=== PATIENT | female | born 1960 | race African-American/Black ===

== ENCOUNTER 2025-03-09 09:59 | Outpatient (REF) | payer OTHER, SELFPAY ==
--- OUTSIDE RECORDS SUMMARY | 2025-03-09 10:45 | XMS_ITS ---
Author Name [facility] Organization Unknown Care Team Organization Name Specialty Phone Email Start Date End Da te [facility] SYLWIA MARROQUIN Primary Care [email or web address] 12/20/2022 4 [facility] Blaine Joe Primary Care 09/18/202202/11 4 [facility] Yuki Bermudez Primary Care 05/21/2022 4
--- OUTSIDE RECORDS SUMMARY | 2025-03-09 10:45 | XMS_ITS | Encounter Summary ---
Author Organization [facility] Address [address] [place] [address] Care Team Providers Care Medical Lead Name Role Phone Haven Velasquez MD Primary Care Pr ovider Encounter Details Date Type Department Care Team (Late st Contact Info) Description 03/04/2025 Nurse Triage Adult Medicine [facility] [address] [place] [phone] Haven Velasquez MD [address] [place] [id number] Social History Tobacco Use Types Packs/Day Years Used Date Smoking Tobacco: Former Cigarettes 0.3 2 0 1974 - 1976 Smokeless Tobacco: Never Alcohol Use Standard Drinks/Week Comments No 0 (1 standard drink = 0.6 oz pur e alcohol) Housing Instability Answer Date Recorde d Are you worried that in the next 2 months you may not have stable housing? No 09/27/2024 Food Access & Nutrition Answer Date Rec orded Do you have access to a vari ety of food including fruits and vegetables? Yes 09/27/2024 Access to Healthcare Answer Date Record ed Within the last 3 months, ho w many times did you visit the emergency department for your medical care? 0 09/27/2024 Health Literacy Answer Date Recorded How often do you need to hav e someone help you when you read instructions, pamphlets, or other written material from your doctor or pharmacy? Never 09/27/2024 Caregiver: How often do you need to have someone help you when you read instructions, pamphlets, or other written material from your doctor or pharmacy? Not on file 09/27/2024 Financial Risk Answer Date Recorded How hard is it for you to pa y for the very basics like food, housing, medical care, and air conditioning / heating? Somewhat hard 09/27/2024 Transportation Answer Date Recorded Has the lack of transportati on kept you from meetings, work, or from getting things needed for daily living? No Has the lack of transportati on kept you from medical appointments or from getting medications? No 09/27/2024 Social Isolation Answer Date Recorded How often do you feel lonely or isolated from those around you? Sometimes 09/27/2024 Food Risk Answer Date Recorded Within the past 12 months we worried whether our food would run out before we got money to buy more. Never true 09/27/2024 Within the past 12 months th e food we bought just didn't last and we didn't have money to get more. Never true 09/27/2024 Dependent Care Answer Date Recorded Do you need help finding or paying for care for your loved ones. For example, child protective investigator or elderly care for an older adult? Yes 09/27/2024 Education Answer Date Recorded Do you think completing more education or training, like finishing a GED, going to college, or learning a trade, would be helpful for you? N/A 09/27/2024 Employment and Income Answer Date Recor ded During the last four weeks, have you been actively looking for work? Yes 09/27/2024 Living Situation Answer Date Recorded What is your living situation? 0 09/27/2024 Comments Unknown Sex and Gender Information Value Date Recorded Sex Assigned at Not on file Legal Sex Female 4:14 PM EST Gender Identity Not on file Sexual Orientation Not on file Travel History Travel Start Travel End [place] 02/03/2025 02/08/2025 documented as of this encounter Ordered Prescriptions Prescription Sig Dispense Quantity Refills Last Filled Start Date End Date metoprolol succinate (TOPROL-XL) 25 mg 24 hr tabletIndications: Essential hypertension, benign,Coronary artery disease involving [place] coronary artery of [place] heart without angina pectoris Take 0.5 tablets (12.5 mg total) by mouth 1 (one) time each day. 45 each 1 03/04/2025 documented in this encounter Progress Notes * Minerva Mccabe RN - 03/04/2025 3:26 PM EDT Pt is aware , will follow up as advised and will call if she has new or worsening problems * Haven Velasquez MD - 03/04/2025 3:18 PM EDT She should break the metoprolol in half and take 12.5 mg daily. She should monitor her blood pressures at home. She should stay well-hydrated drinking at least 2 L of water a day. The metoprolol is primarily indicated for her coronary artery disease so she still needs this medicine. If she still having symptoms at the lower dose, she should let us know.she should follow up in one month for BP check. thanks * Angeles Rodney RN - 03/04/2025 3:13 PM EDT Her BP currently is 98/67. She denies lightheadedness or weakness. She states she feels tired. * Angeles Rodney RN - 03/04/2025 3:07 PM EDT Reason for Disposition [1] Fall in systolic BP > 20 mm Hg from normal AND [2] NOT feeling weak or lightheaded Answer Assessment - Initial Assessment Questions 1. BLOOD PRESSURE: What is your blood pressure? Did you take at least two measurements 5 minutesapart? 100/68 after taking her antihypertensive medications 2. ONSET: When did you take your blood pressure? 10:30 am today 3. HOW: How did you take your blood pressure? (e.g., visiting nurse, automatic home BP monitor) Automatic cuff 4. HISTORY: Do you have a history of low blood pressure? What is your blood pressure normally? HTN. She states normally her BP is 116-120/80. 5. MEDICINES: Are you taking any medicines for blood pressure? If Yes, ask: Have they been changed recently? Losartan 50 mg at 10:00 am daily and Toprol XL 25 mg at 10:00 pm 6. PULSE RATE: Do you know what your pulse rate is? 60's - 70's 7. OTHER SYMPTOMS: Have you been sick recently? Have you had a recent injury? She reports tinnitus, weakness. No dizziness, chest pain or shortness of breath 8. : Is there any chance you are ? When was your last menstrual period? No. Pt is 64 Protocols used: Blood Pressure - Low-A-AH documented in this encounter Plan of Treatment Upcoming Encounters Date Type Department Care Team (Late st Contact Info) Description 03/30/2025 2:20 PM EDT Office Visit Gastroenterology - [address] [place] [address] Cris Moise PA [address] [place] [address] 04/28/2025 9:15 AM EDT Appointment Bone Density [address] [phone] 05/25/2025 9:45 AM EST Office Visit Adult Medicine [address] [phone] Haven Velasquez MD [address] [place] [address] 08/16/2025 10:30 AM EST Consult Bariatric Surgery - [place] [address] [facility] [address] [place] [address] Mayra Ellington PA [address] [place] [address] documented as of this encounter Goals Goal Patient Goal Type Associated Problems Recent Progress Patient-Stated? Author <enter goal here> General On track( 025 11:50 AM EDT) Yes Raya, Marilu A, OT Note: OT PATIENT GOAL HAVE NO PAIN WITH DAILY ACTIVITIES AND GET BETTER SLEEP documented as of this encounter Visit Diagnoses Diagnosis Essential hypertension, benign Coronary artery disease involving [place] coronary artery of [place] heart without angina pectoris documented in this encounter Discontinued Medications Medication Sig Discontinue Reason Start Date End Da te metoprolol succinate (TOPROL-XL) 25 mg 24 hr tabletIndications:Essent ial hypertension, benign,Coronary artery disease involving [place] coronary artery of [place] heart without angina pectoris Take 1 tablet (25 mg total) by mouth 1 (one) time each day. 01/19/2025 03/04/2025 documented as of this encounter Additional Health Concerns Assessment Noted Time PHQ-9 Depression Total Score: 1 09/28/19 25 1:43 PM EDT documented as of this encounter Care Teams Medical Lead Relationship Specialty Start Date End Date Haven Velasquez MD [address] [facility] [place] [address] PCP - General Internal Medicine 01/11/22 documented as of this encounter
--- OUTSIDE RECORDS SUMMARY | 2025-03-09 10:45 | XMS_ITS | Clinical Summary ---
Author Organization [address] Address [address] [facility] ZOË Sood Phone Care Team Providers Care Ingredient Scaler Helper Name Role Phone Haven Velasquez MD Primary Care Pr ovider Allergies Active Allergy Reactions Criticality Noted Date Comments Metformin Nausea And Vomiting 06/01/2021 Medications acetaminophen (TYLENOL) 500 mg tablet Take 1 tablet (500 mg total) by mouth as needed. Active diphenhydrAMIN E (BENADRYL) 25 mg capsule Take 1 capsule (25 mg total) by mouth every 6 (six) hours if needed. Active famotidine (PEPCID) 20 mg tablet Take 1 tablet (20 mg total) by mouth 2 (two) times a day. 60 tablet 11 06/21/20 24 Active losartan (COZAAR) 50 mg tabletIndicati ons:Essential hypertension, benign Take 1 tablet (50 mg total) by mouth 1 (one) time each day. 90 each 01/20/20 25 026 Active atorvastatin (LIPITOR) 20 mg tabletIndicati ons:Coronary artery disease involving [place] coronary artery of [place] heart without angina pectoris,Dysli pidemia Take 1 tablet (20 mg total) by mouth at bedtime. 90 each 01/20/20 25 026 Active aspirin 81 mg EC tabletIndicati ons:Coronary artery disease involving [place] coronary artery of [place] heart without angina pectoris Take 1 tablet (81 mg total) by mouth 1 (one) time each day. 90 each 01/20/20 25 01/05/2 026 Active cyclobenzaprin e (FLEXERIL) 5 mg tabletIndicati ons:Lumbar radiculopathy, Osteoarthritis of spine with radiculopathy, cervical region Take 1 tablet (5 mg total) by mouth at bedtime as needed for muscle spasms. 90 each 1 01/20/20 25 026 Active tirzepatide, weight loss, (Zepbound) 7.5 mg/0.5 mL injectionIndic ations:Type 2 diabetes mellitus with obesity ([facility] V24, [facility] V28) Inject 0.5 mL (7.5 mg total) under the skin every 7 (seven) days. 2 mL 2 02/15/20 25 Active clonazePAM (KlonoPIN) 0.5 mg tabletIndicati ons:Anxiety Take 0.5-1 tablets (0.25-0.5 mg total) by mouth 1 (one) time each day if needed for anxiety. Medication may cause drowsiness, do not drive/operate machinery while taking Max Daily Amount: 0.5 mg 14 tablet 02/29/20 25 Active metoprolol succinate (TOPROL-XL) 25 mg 24 hr tabletIndicati ons:Essential hypertension, benign,Coronar y artery disease involving [place] coronary artery of [place] heart without angina pectoris Take 0.5 tablets (12.5 mg total) by mouth 1 (one) time each day. 45 each 1 03/04/20 25 026 Active clonazePAM (KlonoPIN) 0.5 mg tabletIndicati ons:Anxiety Take 0.5-1 tablets (0.25-0.5 mg total) by mouth 1 (one) time each day if needed for anxiety. Medication may cause drowsiness, do not drive/operate machinery while taking Max Daily Amount: 0.5 mg 14 tablet 11/16/19 25 025 Discontinued(Re order) tirzepatide, weight loss, (Zepbound) 7.5 mg/0.5 mL injectionIndic ations:Type 2 diabetes mellitus with obesity ([facility] V24, [facility] V28) Inject 0.5 mL (7.5 mg total) under the skin every 7 (seven) days. 2 mL 2 01/13/20 25 025 Discontinued(Re order) metoprolol succinate (TOPROL-XL) 25 mg 24 hr tabletIndicati ons:Essential hypertension, benign,Coronar y artery disease involving [place] coronary artery of [place] heart without angina pectoris Take 1 tablet (25 mg total) by mouth 1 (one) time each day. 90 each 1 01/20/20 25 025 Discontinued Active Problems Problem Noted Date Diagnosed Date Depression 01/31/2025 Right lateral epicondylitis 11/04/2024 Fatty liver 05/24/2024 Class 1 obesity due to exces s calories with body mass index (BMI) of 32.0 to 32.9 in adult 05/24/2024 Assessment & Plan (01/19/2025 8:57 AM EDT): So far she has not really lost weight on the Zepbound 5 mg weekly. She will switch to the 7.5 mg when she runs out. Hopefully this causes some weight loss Lumbar radiculopathy 11/28/2023 Assessment & Plan (01/19/2025 8:57 AM EDT): Continue Flexeril as needed and Tylenol Orders: cyclobenzaprine (FLEXERIL) 5 mg tablet; Take 1 tablet (5 mg total) by mouth at bedtime as needed for muscle spasms. Osteoarthritis of spine with radiculopathy, cerv ical region 11/28/2023 Assessment & Plan (01/19/2025 8:57 AM EDT): Continue Flexeril as needed and Tylenol Orders: cyclobenzaprine (FLEXERIL) 5 mg tablet; Take 1 tablet (5 mg total) by mouth at bedtime as needed for muscle spasms. Coronary artery disease 03/14/2023 Overview (05/24/2024): Last Assessment & Plan: Patient is history of coronary artery disease status post mid LAD stent 03/2023. She has been on DAPT with Brilinta and aspirin since then. At this point she can stop the Brilinta and continue on aspirin. Patient encouraged to continue to remain active. She will continue on cardioprotective medical therapy with aspirin, beta-charlee and statin. I have reviewed with the patient the importance of a heart healthy lifestyle which includes eating a low-fat low-salt diet, getting regular exercise, maintaining a healthy weight, not smoking, and following up with routine medical care. Assessment & Plan (01/19/2025 8:57 AM EDT): Stable. Continue current medications. Orders: metoprolol succinate (TOPROL-XL) 25 mg 24 hr tablet; Take 1 tablet (25 mg total) by mouth 1 (one) time each day. Ambulatory referral to Cardiology; Future atorvastatin (LIPITOR) 20 mg tablet; Take 1 tablet (20 mg total) by mouth at bedtime. aspirin 81 mg EC tablet; Take 1 tablet (81 mg total) by mouth 1 (one) time each day. Assessment & Plan (06/28/2024 10:30 AM EST): Stable. Continue metoprolol 25 mg daily, aspirin 81 mg daily, atorvastatin 20 mg nightly De Quervain's tenosynovitis, left 03/30/2020 Type 2 diabetes mellitus wit h obesity ([facility] V24, [facility] V28) 05/18/2019 Assessment & Plan (01/19/2025 8:57 AM EDT): Well-controlled. Continue Zepbound Orders: Hemoglobin A1c; Future Assessment & Plan (06/28/2024 10:30 AM EST): A1c 7.1 Will start Mounjaro. This will also be helpful for weight loss Orders: tirzepatide, weight loss, 2.5 mg/0.5 mL solution; Inject 2.5 mg under the skin every 7 (seven) days. Hemoglobin A1c; Future Pain of right heel 03/25/2019 Anxiety 08/15/2017 Assessment & Plan (01/19/2025 8:57 AM EDT): She has Klonopin to use as needed Assessment & Plan (06/28/2024 10:30 AM EST): Has ongoing stressor with her sick mother Mass pat reviewed. Klonopin last sent in January 20 tablets and August 23 tablets She does not require a CSC due to infrequent prescriptions. 28 tablets sent today to last about 6 months Orders: clonazePAM (KlonoPIN) 0.5 mg tablet; Take 0.5-1 tablets (0.25-0.5 mg total) by mouth 1 (one) time each day if needed for anxiety. Medication may cause drowsiness, do not drive/operate machinery while taking Max Daily Amount: 0.5 mg Essential hypertension, benign 03/26/2017 Overview (01/31/2025): Assessment & Plan (01/19/2025 8:57 AM EDT): Well-controlled. Continue current medications Orders: losartan (COZAAR) 50 mg tablet; Take 1 tablet (50 mg total) by mouth 1 (one) time each day. metoprolol succinate (TOPROL-XL) 25 mg 24 hr tablet; Take 1 tablet (25 mg total) by mouth 1 (one) time each day. Assessment & Plan (06/28/2024 10:30 AM EST): Stable. Continue losartan 50 mg daily FAUSTINO (obstructive sleep apnea) 03/20/2017 Overview (05/24/2024): [facility] Home Sleep Apnea Test: Date 06/02/2019; Wt 254#; BMI 40; KATHRIN 20, AI 3; HI 18; Unclassified apneas 5; Obstructive apneas 15; Central apneas 2; Mixed apneas 0; hypopneas 141; average oxygen saturation 95% (lowest 86% without saturations <88% for 5% or more of study. [facility] Home sleep test -07/2021; weight 245; BMI 37. AHI 15. 23 obstructive apneas, 3 central apneas, 1 mixed apnea and 65 hypopneas. Average oxygen saturation 94% with oxygen katalina 70%. - Obstructive Sleep Apnea - moderate; mostly hypopneas; without sleep related hypoventilation by 2018 home sleep apnea test. Obstructive sleep apnea-moderate with mostly hypopneas and obstructive apneas without nocturnal hypoxemia based on 2021 home sleep test. Assessment & Plan (01/19/2025 8:57 AM EDT): Continue CPAP nightly Assessment & Plan (06/28/2024 10:30 AM EST): sleep study ordered in February. States she was contacted for an appointment but cannot remember the date. I have no records of an appointment for her Another referral is placed today Orders: Ambulatory referral to Sleep Medicine; Future Type 2 diabetes mellitus wit hout complication, without long-term current use of insulin ([facility] V24, [facility] V28) Resolved Problems Problem Noted Date Diagnosed Date Resolved Date Chest wall pain 05/24/2024 01/31/2025 Gassiness 05/24/2024 02/01/2025 Intermittent chest pain 03/14/2023 0707/2024 Abnormal cardiovascular stress test 03/12/2023 01/31/2025 Overview (05/24/2024): Referred to cardiology Dyslipidemia 03/26/2022 02/01/2025 Overview (01/31/2025): Assessment & Plan (01/19/2025 8:57 AM EDT): Continue atorvastatin Orders: atorvastatin (LIPITOR) 20 mg tablet; Take 1 tablet (20 mg total) by mouth at bedtime. Lipid panel with reflex to direct LDL; Future Encounters Date Type Department Care Team Description 03/04/2025 Nurse Triage Adult Medicine [address] [phone] Haven Velasquez MD 02/28/2025 11:16 AM EDT - 02/28/2025 11:59 PM EDT Hospital Encounter Radiology Department - [address] [phone] Encounter for screening mammogram for breast cancer Discharge Disposition: Home or Self Care 02/23/2025 2:30 PM EDT Office Visit Adult Medicine [address] [phone] Haevn Velasquez MD Left-sided tinnitus (Primary Dx); Cerumen debris on tympanic membrane, right 02/21/2025 Nurse Triage [address] [phone] Jana Burks MD 02/14/2025 3:00 PM EDT Office Visit [address] [phone] Danielle Heck, RICKEY Excessive cerumen in ear canal, bilateral (Primary Dx); Irritation of ear, unspecified laterality 02/01/2025 11:15 AM EDT Office Visit [address] [phone] Jana uBrks MD Tinnitus of both ears (Primary Dx); Type 2 diabetes mellitus without complication, without long-term current use of insulin (CMS/HCC V24, CMS/HCC V28); Excessive cerumen in ear canal, bilateral; Essential hypertension, benign 01/31/2025 Nurse Triage [address] [phone] Haven Velasquez MD 01/19/2025 8:45 AM EDT Office Visit [address] [phone] Haven Velasquez MD Type 2 diabetes mellitus with obesity (CMS/HCC V24, CMS/HCC V28) (Primary Dx); Class 1 obesity due to excess calories with serious comorbidity and body mass index (BMI) of 32.0 to 32.9 in adult; Essential hypertension, benign; Coronary artery disease involving [place] coronary artery of [place] heart without angina pectoris; FAUSTINO (obstructive sleep apnea); Lumbar radiculopathy; Osteoarthritis of spine with radiculopathy, cervical region; Anxiety; Dyslipidemia; Need for vaccination against Streptococcus pneumoniae; Skin lesion 01/07/2025 11:30 AM EDT Treatment [facility] Occupational Therapy [address] [place] [phone] Marilu Raya, OT Right lateral epicondylitis (Primary Dx) 01/04/2025 8:35 AM EDT Lab Draw Station - [place] [address] [place] [address] Elevated alkaline phosphatase level; NAFLD (nonalcoholic fatty liver disease); Type 2 diabetes mellitus with obesity ([facility] V24, [facility] V28) 12/30/2024 10:10 AM EDT Office Visit Gastroenterology - [place] [address] [place] [address] Cris Moise PA Elevated alkaline phosphatase level (Primary Dx); NAFLD (nonalcoholic fatty liver disease); Obesity (BMI 35.0-39.9 without comorbidity); Tubular adenoma 12/12/2024 Telephone Adult Medicine [address] [place] [phone] Haven Velasquez MD from Last 3 Months Immunizations Name Administration Dates Next Due Influenza Quadravalent, MDCK , 0.5ml, preservative free (Flucelvax) 6mo and older 04/28/2023,06/01/2021,05/18/2020,05/18 Pneumococcal conjugate 20 va lent (Prevnar 20, PCV 20) 2mo and older 01/19/2025 Pneumococcal polysaccharide 23 valent (Pneumovax 23) 2yo and older 12/22/2018 Tdap Tetanus diptheria acell ular pertussis (Boostrix; Adacel) 7yo and older 12/22/2018 Surgical History Surgery Date Site/Laterality Comments SECTION OOPHORECTOMY : unilateral but not sure which. (ectopic) TUBAL LIGATION VENTRAL HERNIA REPAIR incisional hernia COLONOSCOPY 2006 2 polyps COLONOSCOPY 04/10/2017 : Diverticulosis and 3 polyps: tubular adenoma x 2; hyperplastic x 1. HYSTEROSCOPY 07/29/2017 Endometrial cancer / polyps ROBOTIC ASSISTED HYSTERECTOMY 09/11/2017 BREAST BIOPSY : lt breast bx-benign in her 30s COLONOSCOPY 04/17/2022 diverticulosis and tiny tubular adenoma Medical History Medical History Date Comments Type 2 diabetes mellitus wit hout complication, without long-term current use of insulin (CMS/[facility] V24, CMS/HCC V28) 11/19/2016 Endometrial cancer ([facility] V24, CMS/[facility] V28) 07/31/2017 FAUSTINO (obstructive sleep apnea) 03/20/2017 Essential hypertension, benign D X:Essential hypertension, benign Fatty liver Hyperlipidemia Anxiety state Depressive disorder Coronary artery disease 03/14/2023 Osteoarthritis of spine with radiculopathy, cervical region 11/28/2023 Family History Medical History Relation Name Comments Breast cancer Aunt m 30s Other cancer Maternal Grandmother either kidney or pancreas? Diabetes Mother HTN, thyroid di sease, ESRD Colon cancer Neg Hx Ovarian cancer Neg Hx Relation Name Status Comments Aunt m 30s Father Maternal Grandmother Mother Alive Social History Tobacco Use Types Packs/Day Years Used Date Smoking Tobacco: Former Cigarettes 0.3 2 0 1974 - 1976 Smokeless Tobacco: Never Tobacco Cessation:Counseling Given: Not Answered Alcohol Use Standard Drinks/Week Comments No 0 [...] for your loved ones. For example, child and youth program assistant or elderly care for an older adult? [...] file Travel History Travel Start Travel End [place] 02/03/2025 02/08/2025 Obstetrics History Para Term AB IAB SAB Ectopic Multiple Livin g Live Births 3 3 3 Date Outcome GA Total Labor Labor/2nd/3rd Weight Sex Type Anes PTL Allison A1 A5 Name Clin Term Term Term Last Filed Vital Signs Vital Sign Reading Time Taken Comments Blood Pressure 97/65 02/23/2025 2:27 PM EDT Pulse 63 02/23/2025 2:27 PM EDT Temperature 36.2 C (97.1 F) 02/23/2025 2:27 PM EDT Respiratory Rate 14 02/23/2025 2:27 PM EDT Oxygen Saturation 98% 02/23/2025 2:27 PM EDT Inhaled Oxygen Concentration - - Weight 104 kg (230 lb) 02/23/2025 2:27 PM EDT Height 170.2 cm (5' 7 ) 02/23/2025 2:27 PM EDT Body Mass Index 36.02 02/23/2025 2:27 PM EDT Plan of Treatment Upcoming Encounters Date Type Department Care Team (Late st Contact Info) Description 03/30/2025 2:20 PM EDT Office Visit Gastroenterology - [place] [address] [place] [phone] Cris Moise PA [address] [place] [address] 04/28/2025 9:15 AM EDT Appointment Bone Density - [address] [phone] 05/25/2025 9:45 AM EST Office Visit Adult Medicine [facility] - [address] [phone] Haven Velasquez MD [address] [place] [address] 08/16/2025 10:30 AM EST Consult Bariatric Surgery - [address] [place] [phone] Mayra Ellington PA [address] [place] [address] Health Maintenance Due Date Last Done Comments Zoster Vaccines (1 of 2) 1980 HIV Screening 06/22/2022 Diabetes: Annual Foot Exam 03/08/2025 03/08/2024 Influenza Vaccine (#1) 2025 , 06/01/2021, 05/18/2020, Additional history exists Diabetes: Annual Urine Albumin-Creatinine Ratio (uACR) 06/23/2025 06/23/2024, 07/30/2023 Diabetes: Blood Sugar Control Test (HGBA1C) 07/06/2025 01/04/2025, 09/15/2024, 06/23/2024, Additional history exists Social Influencers of Health Screening 09/27/2025 09/27/2024 Diabetes: Annual GFR (Glomerular Filtration Rate) 10/25/2025 10/25/2024, 09/15/2024, 06/23/2024, Additional history exists Hypertension/CHF/CAD Annual BMP Blood Test 10/25/2025 10/25/2024, 09/15/2024, 06/23/2024, Additional history exists Diabetes: Annual Retina Eye Exam 12/20/2025 12/20/2024, 08/02/2023 Breast Cancer Screening 02/28/2027 02/29/20 25, 02/16/2024, 02/16/2024, Additional history exists Colorectal Cancer Screening: Colonoscopy 04/17/2027 04/17/2022 DTaP,Tdap,and Td Vaccines (2 - Td or Tdap) 12/22/2028 12/22/2018 Cholesterol Screening (Lipid Panel) 06/23/2029 06/23/2024, 11/24/2023, 11/24/2023 RSV Immunization Adult Patients (1 - 1-dose 75+ series) 2036 COVID-19 Vaccine Discontinued 08/01/2021, , 10/03/2020 Hepatitis C Screening Completed 08/06/2021 Depression Screening Completed 09/27/2024, 11/28/19 Pneumococcal Vaccine: 50+ Years Completed 01/19/2025, 12/22/2018 HIB Vaccines Aged Out No longer eligi ble based on patient's age to complete this topic HPV Vaccines Aged Out No longer eligi ble based on patient's age to complete this topic Hepatitis A Vaccines Discontinued Hepatitis B Vaccines Aged Out No long er eligible based on patient's age to complete this topic IPV Vaccines Aged Out No longer eligi ble based on patient's age to complete this topic MMR Vaccines Aged Out No longer eligi ble based on patient's age to complete this topic Meningococcal ACWY Vaccine Aged Out N o longer eligible based on patient's age to complete this topic Meningococcal B Vaccine Aged Out No l onger eligible based on patient's age to complete this topic RSV Immunization Patients Under 20 months Aged Out No longer eligible based on patient's age to complete this topic Varicella Vaccines Aged Out No longer eligible based on patient's age to complete this topic Goals Goal Patient Goal Type Associated Problems Recent Progress Patient-Stated? Author <enter goal here> General On track( 025 11:50 AM EDT) Yes Marilu Raya, OT Note: OT PATIENT GOAL HAVE NO PAIN WITH DAILY ACTIVITIES AND GET BETTER SLEEP Procedures Procedure Name Priority Date/Time Associated Diagnosis Comments MG MAMMO DIGITAL SCREENING W THOM BILAT Routine 02/28/2025 11:40 AM EDT Encounter for screening mammogram for breast cancer HEMOGLOBIN A1C Routine 01/04/2025 9:00 AM EDT Type 2 diabetes mellitus with obesity (CMS/HCC V24, CMS/HCC V28) SMOOTH MUSCLE ANTIBODY IGG Routine 01/04/2025 9:00 AM EDT Elevated alkaline phosphatase level NAFLD (nonalcoholic fatty liver disease) ANTIMITOCHONDRIAL ANTIBODY Routine 01/04/2025 9:00 AM EDT Elevated alkaline phosphatase level NAFLD (nonalcoholic fatty liver disease) CHIKI IFA WITH TITER AND PATTERN Routine 01/04/2025 9:00 AM EDT Elevated alkaline phosphatase level NAFLD (nonalcoholic fatty liver disease) COMPREHENSIVE METABOLIC PANEL Routine 10/25/2024 12:25 PM EDT Elevated alkaline phosphatase level Dyspepsia Diabetes 1.5, managed as type 2 (CMS/HCC V24, CMS/HCC V28) MICROALBUMIN CREATININE URINE RATIO Routine 06/23/2024 9:53 AM EST Essential hypertension, benign Fatty liver Type 2 diabetes mellitus with obesity (CMS/HCC V24, CMS/HCC V28) Dyslipidemia LIPID PANEL WITH REFLEX TO DIRECT LDL Routine 06/23/2024 9:52 AM EST Essential hypertension, benign Fatty liver Type 2 diabetes mellitus with obesity (CMS/HCC V24, CMS/HCC V28) Dyslipidemia DIABETES FOOT EXAM Routine 03/08/2024 DEPRESSION SCREENING Routine 11/28/2023 DIABETES EYE EXAM Routine 08/02/2023 COLONOSCOPY Routine 04/17/2022 HEPATITIS C SCREENING Routine 08/06/2021 from Last 3 Months or Most Recently Relevant to Health Maintenance Results * MG Mammo Digital Screening w Thom bilat (02/28/2025 11:40 AM EDT) Anatomical Region Laterality Modality Breast Bilateral Mammography 03/01/2025 12:5 0 PM EDT Impressions 03/01/2025 12:56 PM EDT No mammographic evidence for malignancy. BI-RADS CATEGORY: 2 - BENIGN RECOMMENDATION: Screening bilateral mammogram is recommended in 1 year. Mammo Location: [facility], [address] [place] [address], [id number], . -------- FINAL REPORT -------- Dictated By: Veronica Santacruz Dictated Date: 03/01/2025 12:50 ET Assigned Physician: Veronica Santacruz Reviewed and Electronically Signed By: Veronica Santacruz Signed Date: 03/01/2025 12:56 ET Workstation ID: [id number] Transcribed By: Self Edit Transcribed Date: 03/01/2025 12:50 ET Narrative 03/01/2025 12:56 PM EDT Bilateral screening mammogram. CLINICAL: 64 years old, Female, routine annual exam. COMPARISON: Prior mammograms, latest from 02/16/2024. TECHNIQUE: Bilateral MLO and CC views were obtained digitally with 2 D C views and 3-D mammogram (digital breast tomosynthesis). Computer-aided detection was utilized in evaluation of this exam (CAD). FINDINGS: There is no evidence of suspicious mass or architectural distortion. No worrisome calcifications are evident. There has been no significant change from prior exam(s). BREAST DENSITY: C - The breasts are heterogeneously dense which may obscure small masses. Procedure Note Veronica Santacruz MD - 03/01/2025 Bilateral screening mammogram. CLINICAL: 64 years old, Female, routine annual exam. COMPARISON: Prior mammograms, latest from 02/16/2024. TECHNIQUE: Bilateral MLO and CC views were obtained digitally with 2 D Cviews and 3-D mammogram (digital breast tomosynthesis). Computer-aideddetection was utilized in evaluation of this exam (CAD). FINDINGS: There is no evidence of suspicious mass or architectural distortion. Noworrisome calcifications are evident. There has been no significantchange from prior exam(s). BREAST DENSITY: C - The breasts are heterogeneously dense which mayobscure small masses. IMPRESSION: No mammographic evidence for malignancy. BI-RADS CATEGORY: 2 - BENIGN RECOMMENDATION: Screening bilateral mammogram is recommended in 1 year. Mammo Location: [facility], [address] [place] [address], [id number], . -------- FINAL REPORT -------- Dictated By: Veronica Santacruz Dictated Date: 03/01/2025 12:50 ET Assigned Physician: Veronica Santacruz Reviewed and Electronically Signed By: Veronica Santacruz Signed Date: 03/01/2025 12:56 ET Workstation ID: [id number] Transcribed By: Self Edit Transcribed Date: 03/01/2025 12:50 ET us Haven Velasquez MD IMG BI PROCEDURE S Final Result * (ABNORMAL) CHIKI IFA with titer and pattern (01/04/2025 9:00 AM EDT) CHIKI Positive( A) Negative 01/05/2025 2:19 PM EDT [facility] CHIKI Pattern Homogeneo us(A) (none) 01/05/2025 2:19 PM EDT [facility] Comment:May be Associated wi th SLE and drug-induced SLE. Titer 1:320(A) <1:160 01/05/2025 2:19 PM EDT [facility] Comment: Approximately 3% of healthy persons have CHIKI titer of 1:320 or higher Further testing for other autoantibodies should be prompted by specific clinical findings/impressions. Blood Venous blood specimen / Unknown Venipuncture / Unknown 01/04/2025 9:00 AM EDT 01/04/2025 9:00 AM EDT us Cris BLAND LAB BLOOD ORDERABLES Final Re sult [facility] [address] [place] [address], [place] [phone] * Smooth muscle antibody IgG (01/04/2025 9:00 AM EDT) [facility] Smooth Muscle (F-Actin) IgG Ab 13 <20 UNITS 01/07/2025 12:02 PM EDT [facility] Comment: Interpretation: Negative Test performed at [facility], [address], [place] [address] Zayda Fisher MD, PhD - Bedspread Folder Blood Venous blood specimen / Unknown Venipuncture / Unknown 01/04/2025 9:00 AM EDT 01/04/2025 9:00 AM EDT us Cris BLAND LAB BLOOD ORDERABLES Final Re sult Performing Organization Address [facility]/ZIP Co de Phone Number [facility] [address] [place] [address] * Antimitochondrial antibody (01/04/2025 9:00 AM EDT) [facility] Mitochondrial Antibody Quantitative 3.2 <=20.0 units LAB CHEMISTRY METHOD 01/05/2025 11:54 AM EDT [facility] Mitochondrial Antibody Qualitative Negative Negative LAB CHEMISTRY METHOD 01/05/2025 11:54 AM EDT [facility] Blood Venous blood specimen / Unknown Venipuncture / Unknown 01/04/2025 9:00 AM EDT 01/04/2025 9:00 AM EDT us Cris BLAND LAB BLOOD ORDERABLES Final Re sult Performing Organization Address [facility]ZIP Co de Phone Number [facility] [address] [place] [address], [place] [phone] * Hemoglobin A1c (01/04/2025 9:00 AM EDT) [facility] Hemoglobin A1C 5.9 <6.5 % LAB CHEMISTRY METHOD 01/04/2025 1:27 PM EDT [facility] Mean Bld Glu Estim. 123 mg/dL LAB CHEMISTRY METHOD 01/04/2025 1:27 PM T [facility] Blood Venous blood specimen / Unknown Venipuncture / Unknown 01/04/2025 9:00 AM EDT 01/04/2025 9:00 AM EDT us Haven Velasquez MD LAB BLOOD ORDERA BLES Final Result [facility] [address] [place] [address], [place] [phone] * (ABNORMAL) Comprehensive metabolic panel (10/25/2024 12:25 PM EDT) [facility] Sodium 137 133 - 145 mmol/L LAB CHEMISTRY METHOD 10/25/2024 6:15 PM [facility] Potassium 4.3 3.5 - 5.5 mmol/L LAB CHEMISTRY METHOD 10/25/2024 6:15 PM [facility] Chloride 106 96 - 110 mmol/L LAB CHEMISTRY METHOD 10/25/2024 6:15 PM [facility] CO2 24 21 - 32 mmol/L LAB CHEMISTRY METHOD 10/25/2024 6:15 PM [facility] Anion Gap 7 3 - 11 LAB CHEMISTRY METHOD 10/25/2024 6:15 PM [facility] Glucose 129(H) 70 - 100 mg/dL LAB CHEMISTRY METHOD 10/25/2024 6:15 PM [facility] BUN 13 5 - 25 mg/dL LAB CHEMISTRY METHOD 10/25/2024 6:15 PM [facility] Creatinine 0.98 0.50 - 1.10 mg/dL LAB CHEMISTRY METHOD 10/25/2024 6:15 PM [facility] eGFR 65 >=60 mL/min/1. 73m2 LAB CHEMISTRY METHOD 10/25/2024 6:15 PM [facility] Comment:Calculation based on the Chronic Kidney Disease Epidemiology Collaboration (CKD-EPI) equation refit without adjustment for race. BUN/Creatinine Ratio 13.3 LAB CHEMISTRY METHOD 10/25/2024 6:15 PM [facility] Calcium 10.0 8.5 - 10.5 mg/dL LAB CHEMISTRY METHOD 10/25/2024 6:15 PM [facility] AST (SGOT) 7(L) 10 - 42 unit/L LAB CHEMISTRY METHOD 10/25/2024 6:15 PM [facility] ALT (SGPT) 28 10 - 60 unit/L LAB CHEMISTRY METHOD 10/25/2024 6:15 PM [facility] Alkaline Phosphatase 190(H) 42 - 121 unit/L LAB CHEMISTRY METHOD 10/25/2024 6:15 PM [facility] Total Protein 7.5 6.0 - 8.0 g/dL LAB CHEMISTRY METHOD 10/25/2024 6:15 PM [facility] Albumin 3.9 3.2 - 5.0 g/dL LAB CHEMISTRY METHOD 10/25/2024 6:15 PM [facility] Total Bilirubin 0.3 0.0 - 1.4 mg/dL LAB CHEMISTRY METHOD 10/25/2024 6:15 PM [facility] Blood Venous blood specimen / Unknown Venipuncture / Unknown 10/25/2024 12:25 PM EDT 10/25/2024 12:25 PM EDT us Oneal BLAND LAB BLOOD ORDERABLES Final Resu lt [facility] [address] [place] [address], [place] [phone] * Microalbumin creatinine urine ratio (06/23/2024 9:53 AM EST) Creatinine, Urine 106.0 mg/dL LAB CHEMISTRY METHOD 06/23/2024 12:56 PM EST [facility] Microalb, Ur 6.8 0.0 - 29.0 mg/L LAB CHEMISTRY METHOD 06/23/2024 12:[address] [facility] Microalb/Creat Ratio 6 <30 mg/g creat LAB CHEMISTRY METHOD 06/23/2024 12:[address] [facility] Urine Urine specimen obtained by clean catch procedure / Unknown Non-blood Collection / Unknown 06/23/2024 9:53 AM EST 06/23/2024 9:53 AM EST Haven Velasquez MD LAB URINE ORDERA BLES Final Result [facility] [address] [place] [address], [place] [phone] * Lipid panel with reflex to direct LDL (06/23/2024 9:52 AM EST) Cholesterol 108 0 - 200 mg/dL LAB CHEMISTRY METHOD 06/23/2024 12:[address] [facility] Triglycerides 102 0 - 150 mg/dL LAB CHEMISTRY METHOD 06/23/2024 12:[address] [facility] HDL 60 >=40 mg/dL LAB CHEMISTRY METHOD 06/23/2024 12:[address] [facility] LDL Calculated 28 0 - 100 mg/dL LAB CHEMISTRY METHOD 06/23/2024 12:[address] [facility] VLDL Cholesterol Tru 20.4 mg/dL LAB CHEMISTRY METHOD 06/23/2024 12:[address] [facility] Non HDL Chol. (LDL+VLDL) 48 <145 mg/dL LAB CHEMISTRY METHOD 06/23/2024 12:24 PM EST [facility] Chol/HDL Ratio 1.8 0.0 - 4.4 LAB CHEMISTRY METHOD 06/23/2024 12:24 PM EST [facility] Blood Venous blood specimen / Unknown Venipuncture / Unknown 06/23/2024 9:52 AM EST 06/23/2024 9:52 AM EST Haven Velasquez MD LAB BLOOD ORDERA BLES Final Result [facility] [address] [place] [address], * Diabetes Foot Exam (03/08/2024) [facility] Diabetes: Annual Foot Exam Abstracted Historical Provider HEALTH MAINTENANCE Final Result * Depression Screening (11/28/2023) [facility] Depression Screening Abstracted [facility] Provider HEALTH MAINTENANCE Final Result * Diabetes Eye Exam (08/02/2023) [facility] Diabetes: Annual Retina Eye Exam Abstracted [facility] Provider HEALTH MAINTENANCE Final Result * Colonoscopy (04/17/2022) [facility] Colonoscopy No interpretation , abstracted Anatomical Region Laterality Modality Other Historical Provider HEALTH MAINTENANCE Final Result * Hepatitis C Screening (08/06/2021) [facility] Hepatitis C Screening Abstracted Historical Provider HEALTH MAINTENANCE Final Result from Last 3 Months or Most Recently Relevant to Health Maintenance Insurance [employer] Care Teams Ingredient Scaler Helper Relationship Specialty Start Date End Date Haven Velasquez MD [address], [place] PCP - General Internal Medicine 01/11/22
--- OUTSIDE RECORDS SUMMARY | 2025-03-09 10:45 | XMS_ITS | Clinical Summary ---
Author Organization [facility] Address [address] [place] [address] Phone Care Team Providers Care Microcomputer Support Specialist Name Role Phone Haven Velasquez MD Primary Care Pr ovider Encounters Date Type Department Care Team Description 03/08/2025 Telephone [employer] [facility] Rheumatology [address] [place] [address] Unknown, Unknown, MD Referral (Call Back & Locate Referral in SFA Needed) from Last 3 Months Social History Tobacco Use Types Packs/Day Years Used Date Smoking Tobacco: Never Assessed Comments Unknown Sex and Gender Information Value Date Recorded Sex Assigned at Not on file Legal Sex Female 12:05 PM EDT Gender Identity Not on file Sexual Orientation Not on file Plan of Treatment Not on file Medical Devices Not on file Insurance [facility] NON NSPG PCP [facility] [employer] NON NSPG PCP [employer] NON NSPG PCP S[employer] NON NSPG PCP [employer] NON NSPG PCP S[employer] NON NSPG PCP [employer] Care Teams Microcomputer Support Specialist Relationship Specialty Start Date End Date Haven Velasquez MD [address] [place] [id number] PCP - General Family Medicine 01/27/25 Additional Source Comments The information contained in this document represents components of the legal health record. It is not the complete legal health record.[facility]
--- OUTSIDE RECORDS SUMMARY | 2025-03-09 10:45 | XMS_ITS | Encounter Summary ---
Author Organization [facility] Address [address] [place] [address] Phone Care Team Providers Care Insurance Claims Clerk Name Role Phone Haven Velasquez MD Primary Care Pr ovider Reason for Visit * Reason Onset Date Comments Referral 03/08/2025 Call Back & Loca te Referral in SFA Needed Encounter Details Date Type Department Care Team (Late st Contact Info) Description 03/08/2025 Telephone [facility] Rheumatology [address] [place] [address] Unknown, Unknown, MD Referral (Call Back & Locate Referral in SFA Needed) Social History Tobacco Use Types Packs/Day Years Used Date Smoking Tobacco: Never Assessed Comments Unknown Sex and Gender Information Value Date Recorded Sex Assigned at Not on file Legal Sex Female 12:05 PM EDT Gender Identity Not on file Sexual Orientation Not on file documented as of this encounter Progress Notes * [place] Ramon - 03/08/2025 12:00 PM EDT [facility] Top Smart Phrases: Locating Referral Fax Hello, We are notifying you that the patient called to schedule a new patient appointment. The referral is not listed on file or in the media tab. The patient has informed us that the referral was faxed out. Please review the SFA and contact the patient with the referral determination if it is on file or not. Thank you If caller not the patient: Name: Relationship: Referral Order Details provided by caller Diagnosis: N/A Reason/Specify: N/A Referred To Name:N/A Referral Fax Out Dates: A week ago or more Additional information: Pt states that she spoke with someone previously who told her the referral had been received and would be uploaded. Agent Action: > Route Encounter to FD Pool > Reason for Call: Referral > Comment: Call Back & Locate Referral in SFA Needed > Reiterate Scripting: Provide our referral not on file scripting Required Scripting: If the referral is not on file: Paige, thank you for calling. I see that you'vementioned your provider faxed over a referral, but we have not yet received it on our end. Sometimes there can be a delay in processing or receiving faxes. Can you please confirm the date it was sent and the fax number that was used? Provide the caller with the office fax number. I will be happy to send a message over to the office for them to review their records and let you know if they've received it. documented in this encounter Plan of Treatment Not on file documented as of this encounter Visit Diagnoses Not on filedocumented in this encounter Care Teams Insurance Claims Clerk Relationship Specialty Start Date End Date Haven Velasquez MD [address] [place] [id number] PCP - General Family Medicine 01/27/25 documented as of this encounter Additional Source Comments The information contained in this document represents components of the legal health record. It is not the complete legal health record.[facility]
== END 2025-03-09 10:00 | disposition home or self-care (01) ==
LOC: HO.SH 09:59
PROVIDERS: Visit Provider Family Medicine
DX: Z01.118 Encounter for examination of ears and hearing with other abnormal findings (principal); H93.12 Tinnitus, left ear
CPT/HCPCS: 92557; 92567